=== PATIENT | female | born 1975 | race Caucasian/White ===

== ENCOUNTER 2018-09-09 07:49 | Day surgery (SDC) | payer OTHER ==
[~2018-09-09] VITALS: Ht 157.5 cm; Wt 96.2 kg
[2018-09-09] VITALS (15 sets, daily range): BP systolic 104–145; BP diastolic 61–76; PULSE 60–74; RESP 14–20; Ht 157.5 cm; Wt 96.2 kg
--- NOTE | 2018-09-09 09:17 | PREAC ---
Date/Time of Note Date/Time of Note DATE: 09/09/18 TIME: 09:16 Anesthesia Eval and Record Evaluation Time Pre-Procedure Interview DATE: 09/09/18 TIME: 09:16 Age 43 Sex female NPO: 8 hrs Preoperative diagnosis menorrhagia Planned procedure hysteroscopy D&C, endometrial ablation Past Medical History Past Medical History: Includes GI: GERD, Obesity Heme: Anemia Surgery & Anesthesia Issues No known issue Meds Anticoagulation: No Beta Alvarez within 24 hr: No Reason Beta Alvarez not given: Pt. not on B-Alvarez Meds reviewed: Yes Allergies Coded Allergies: No Known Allergies (Verified Allergy, Unknown, 09/09/18) Allergies Reviewed: Yes Labs/Studies Labs Reviewed: Reviewed by anesthesiologist Result Diagram: 09/09/18 0825 Laboratory Tests 09/09/18 08:25 Blood Bank Test 09/09/18 08:25 Blood Type O POSITIVE test: Negative Pre-procedure Exam Last vitals Vital Signs Date Temp Pulse Resp B/P (MAP) Pulse Ox O2 O2 Flow FiO2 Time Delivery Rate 09/09/18 96.5 66 18 133/69 99 Room Air 08:25 (90) Airway: Adequate mouth opening, Adequate thyromental dist Mallampati: Mallampati II Teeth: Normal Lung: Normal Heart: Normal ASA Physical Status ASA physical status: 2 Emergency: None Planned Anesthetic General/MAC: LMA Planned Pain Management Parenteral pain med Pre-operative Attestations Prior to commencing anesthesia and surgery, the patient was re-evaluated, there was verification of: *The patient's identity *The results of appropriate recent lab work and preoperative vital signs *The above evaluation not changing prior to induction *Anesthetic plan, risk benefits, alternative and complications discussed with patient/family; questions answered; patient/family understands, accepts and wishes to proceed. JIM CARDONA MD Sep 09, 2018 09:16
[2018-09-09] MEDS ORDERED: MIDAZOLAM 1 MG/ML 2 ML INJ ONE (09:42)
[2018-09-09] MEDS ORDERED: FENTAnyl 50 MCG/ML VIAL IV PRN (10:00)
[2018-09-09] MEDS ORDERED: PROCHLORPERAZINE 10 MG INJ IV PRN (10:00)
[2018-09-09] MEDS ORDERED: ONDANSETRON 4 MG INJ IV PRN (10:00)
[2018-09-09] MEDS ORDERED: OXYCODONE/ACETAMINOPHEN (5/325) TAB PO PRN (10:00)
[2018-09-09] MEDS ORDERED: MEPERIDINE 25 MG INJ IV PRN (10:00)
[2018-09-09] MEDS ORDERED: HYDROmorphONE 1 MG/5 ML IV SYRINGE IV PRN ×3 (10:00)
[2018-09-09] MEDS ORDERED: DIPHENHYDRAMINE 50 MG INJ IV PRN (10:00)
[2018-09-09] MEDS ORDERED: FAMOTIDINE 20 MG INJ ONE (10:01)
[2018-09-09] MEDS ORDERED: CEFAZOLIN 1 GM INJ ONE (10:01)
[2018-09-09] MEDS ORDERED: PROPOFOL 40 ML ONE (10:01)
[2018-09-09] MEDS ORDERED: ONDANSETRON 4 MG INJ ONE (10:01)
[2018-09-09] MEDS ORDERED: LIDOCAINE 2% (SDV) 5 ML INJ ONE (10:01)
[2018-09-09] MEDS ORDERED: DEXAMETHASONE 4 MG/ML 5 ML INJ ONE (10:01)
[2018-09-09] MEDS ORDERED: FENTAnyl 50 MCG/ML VIAL ONE (10:04)
--- NOTE | 2018-09-09 10:43 | OPPN ---
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 Sep 09, 2018 10:43
--- NOTE | 2018-09-09 10:49 | PAC ---
Date/Time of Note Date/Time of Note DATE: 09/09/18 TIME: 10:48 Post-Anesthesia Notes Post-Anesthesia Note Last documented vital signs Vital Signs Date Temp Pulse Resp B/P (MAP) Pulse Ox O2 O2 Flow FiO2 Time Delivery Rate 09/09/18 96.5 66 18 133/69 99 Room Air 08:25 (90) Activity: WNL Respiratory function: WNL Cardiovascular function: WNL Mental status: Baseline Pain reasonably controlled: Yes Hydration appropriate: Yes Nausea/Vomiting absent: Yes Comments BP: 119/66 HR: 75 RR: 15 T: 98.9 SaO2: 100% JIM CARDONA MD Sep 09, 2018 10:49
--- NOTE | 2018-09-09 11:49 | OPR ---
DATE OF OPERATION: 09/09/2018 PREOPERATIVE DIAGNOSIS: Severe menorrhagia and anemia. 1. Anemia. POSTOPERATIVE DIAGNOSIS: Severe menorrhagia and anemia. OPERATION PERFORMED: D and C and hysteroscopy, endometrial thermal ablation. ANESTHESIOLOGIST: . ANESTHESIA: General. COMPLICATIONS: None. ESTIMATED BLOOD LOSS: Minimal. DESCRIPTION OF PROCEDURE: The patient was taken to the operating room where general anesthesia was f ound to be adequate. The patient was placed in dorsal lithotomy position. After prep and drape, the weighted speculum was placed inside the vaginal vault. Anterior lip of the cervix was grasped by si ngle-tooth tenaculum. Endocervical curette was done and the cervical canal was dilated by Avelar dila tors. An endometrial curet was done and sent to pathology. Then, diagnostic hysteroscopy was done. Pathology came back. The frozen section came back as benign pathology. Using [employer] the rmal ablation device, the endometrial lining were ablated using the Cam ablation system. Everything went uncomplicated. There was no leaking. After cooling period, the instruments were removed. The patient tolerated the procedure well and was transferred to recovery room in stable condition. There was no complication regarding this surgery. Dictated By: MICHAELA CALHOUN/CECILIA Conf#: [id number] DID#: [id number]
--- NOTE | 2018-09-09 11:53 | HP ---
DATE OF ADMISSION: 09/09/2018 HISTORY OF PRESENT ILLNESS: This is preop history and physical, 43 years old with severe menorrhagia , anemia, admitted for D and C and hysteroscopy. Fertility is not desired. The patient understands that it is not a protection against fertility, although the chance of getting is low. PAST MEDICAL HISTORY: Denies. PAST SURGICAL HISTORY: Previous . ALLERGIES: NKDA. PHYSICAL EXAMINATION: VITAL SIGNS: Stable. GENERAL: Normal. ABDOMEN: Not tender, not distended. GENITAL: Mild cystocele and rectocele. Other than that, there was no abnormality in the exam. ASSESSMENT AND PLAN: The patient is 43-year-old with severe menorrhagia and anemia. Consented for D and C and hysteroscopy and endometrial ablation. Risks and benefits discussed. Alternatives discus sed. Risks and benefits of alternatives discussed. The patient signed the consent and was taken to the operating room. Dictated By: MICHAELA CALHOUN/CECILIA Conf#: [id number] DID#: [id number]
== END 2018-09-09 13:25 | disposition home or self-care (01) ==
LOC: SDS 07:49
PROVIDERS: ATTEND Obstetrics & Gynecology
DX: N92.0 Excessive and frequent menstruation with regular cycle (principal); D64.9 Anemia, unspecified
CPT/HCPCS: 58563; 85025; 86850; 86900; 86901; J0690; J1100; J1170; J2250; J2405; J3010; Z7610; 84703; 88305; 88331